=== PATIENT | male | born 1995 | race Two or more races ===

== ENCOUNTER 2020-01-18 13:00 | Emergency (ER) | payer OTHER ==
[~2020-01-18] VITALS: Ht 180.3 cm; Wt 96.1 kg
[2020-01-18 13:06] VITALS: BP 150/80
--- NOTE | 2020-01-18 13:27 | NUR ---
PT CAME [facility] TODAY CO OF SOB AND FEVER. HE WAS "DROPPING MY DAD OFF AT . AND DURING THE SCREENING TO GET INTO THE UC I WAS SHOWING A FEVER OF 101."
[2020-01-18] MEDS ORDERED: IBUPROFEN 600 MG TABLET ONE (13:47)
[2020-01-18] MEDS ORDERED: ACETAMINOPHEN 500 MG TABLET ONE (13:47)
[2020-01-18] MEDS ORDERED: ONDANSETRON ODT 4 MG ONE (13:47)
[2020-01-18] MEDS ORDERED: ACETAMINOPHEN 500 MG TABLET PO PRN (14:00)
[2020-01-18] MEDS ORDERED: IBUPROFEN 600 MG TABLET PO PRN (14:00)
[2020-01-18] MEDS ORDERED: ONDANSETRON ODT 4 MG PO PRN (14:00)
[2020-01-18 15:39] LABS: RAPID INFLUENZA A Negative (Negative); RAPID INFLUENZA B Negative (Negative)
== END 2020-01-18 16:12 | disposition home or self-care (01) ==
LOC: ED 13:48
DX: R50.9 Fever, unspecified (principal); Z20.828 Contact with and (suspected) exposure to other viral communicable diseases; R05 Cough
CPT/HCPCS: 71045; 87400; 99284; Q0162

== ENCOUNTER 2020-03-16 13:18 | Emergency (ER) | payer OTHER ==
[~2020-03-16] VITALS: Ht 180.3 cm; Wt 90.8 kg
--- NOTE | 2020-03-16 13:42 | NUR ---
PT WITH C/O FLANK PAIN X3 DAYS. PT WITH DIARRHEA X 7 DAYS. PT REPORTS 2 DAYS VOMITTING. PT STATES HE HAS HAD DARKER URINE, WAS SEEN AT [facility]RGENT [facility]ARE A COUPLE DAYS AGO AND DIAGNOSED WITH CALCIUM IN HIS URINE AND SCIATIC PAIN.
[2020-03-16] MEDS ORDERED: KETOROLAC 30 MG/1 ML IM ONE (14:30)
[2020-03-16] MEDS ORDERED: ONDANSETRON ODT 4 MG ONE (14:37)
[2020-03-16] MEDS ORDERED: CYCLOBENZAPRINE 10 MG TABLET ONE (14:37)
[2020-03-16] MEDS ORDERED: KETOROLAC 30 MG/1 ML ONE (14:37)
[2020-03-16 14:45] LABS: MICROSCOPIC INDICATED
--- NOTE | 2020-03-16 14:46 | NUR ---
PIV INITIATED, LABS DRAWN. PT MEDICATED PER DEC. UA SAMPLE COLLECTED AND SENT TO LAB
[2020-03-16 14:51] LABS: BASOPHILS # (AUTO) 0.03 x10^3/uL (0-0.1); BASOPHILS % (AUTO) 0 % (0-1); EOSINOPHILS # (AUTO) 0.03 x10^3/uL (0-0.4); EOSINOPHILS % (AUTO) 0 % (1-7); LYMPHOCYTES # (AUTO) 1.38 x10^3/uL (1-3.4); LYMPHOCYTES % (AUTO) 12 % (22-44); MD NO; MEAN CORPUSCULAR HEMOGLOBIN 29.3 pg (27.5-34.5); MEAN CORPUSCULAR HGB CONC 32.8 g/dL (33.2-36.2); MEAN CORPUSCULAR VOLUME 89.6 fL (81-97); MEAN PLATELET VOLUME 7.9 fL (7.4-10.4); MONOCYTES # (AUTO) 0.52 x10^3/uL (0.2-0.8); MONOCYTES % (AUTO) 5 % (2-9); NEUTROPHILS # (AUTO) 9.32 x10^3/uL (1.8-6.8); NEUTROPHILS % (AUTO) 83 % (42-75); PLATELET COUNT 294 x10^3/uL (130-400); RED BLOOD COUNT 5.49 x10^6/uL (4.38-5.82); RED CELL DISTRIBUTION WIDTH 13.8 % (9.4-14.8)
[2020-03-16] MEDS ORDERED: SODIUM CHLORIDE 0.9% 1,000ML IV ONE (15:00)
[2020-03-16] MEDS ORDERED: CYCLOBENZAPRINE 10 MG TABLET PO ONE (15:00)
[2020-03-16] MEDS ORDERED: KETOROLAC 30 MG/1 ML IVPush ONE (15:00)
[2020-03-16] MEDS ORDERED: ONDANSETRON ODT 4 MG PO ONE (15:00)
[2020-03-16 15:14] LABS: ALBUMIN 4.4 g/dL (3.4-5.0); ANION GAP 4 mmol/L (5-15); CALCIUM 9.4 mg/dL (8.5-10.1); CHLORIDE 109 mmol/L (98-107)
[2020-03-16 15:19] LABS: ALANINE AMINOTRANSFERASE 20 U/L (12-78); ALKALINE PHOSPHATASE 85 U/L (45-117); CREATININE 1.14 mg/dL (0.7-1.3); TOTAL PROTEIN 8.1 g/dL (6.4-8.2)
[2020-03-16] MEDS ORDERED: SODIUM CHLORIDE FLUSH 10ML SYR IVF ONE (15:30)
[2020-03-16 15:39] VITALS: BP 106/63
--- NOTE | 2020-03-16 15:41 | NUR ---
PT CONTINUES TO REST ON POPEYE KHALIL, NAD NOTED. PT STATES MIMIMAL RELEIF FROM PAIN MEDICATIONS, WILL NOTIFY ERMD
[2020-03-16 15:44] LABS: HCT (SEDRATE) 49.2 % (39.2-51.8)
[2020-03-16] MEDS ORDERED: CEFTRIAXONE PMX 1GM/50ML 50 ML IV ONE (16:00)
[2020-03-16] MEDS ORDERED: CEFTRIAXONE 1,000 MG IVPB ONE (16:00)
== END 2020-03-16 16:24 | disposition home or self-care (01) ==
LOC: ED 15:18
DX: N30.00 Acute cystitis without hematuria (principal); G89.29 Other chronic pain; M54.5 Low back pain; R11.10 Vomiting, unspecified; R19.7 Diarrhea, unspecified
CPT/HCPCS: 36415; 72110; 80053; 81001; 83690; 85025; 85651; 87086; 96374; 99284; J1885; J7030; Q0162

== ENCOUNTER 2020-03-27 03:26 | Emergency (ER) | payer OTHER ==
[~2020-03-27] VITALS: Ht 180.3 cm; Wt 95.0 kg
[2020-03-27 05:16] VITALS: BP 131/76
== END 2020-03-27 05:30 | disposition home or self-care (01) ==
LOC: ED 05:24
DX: R06.00 Dyspnea, unspecified (principal); F41.1 Generalized anxiety disorder
CPT/HCPCS: 71045; 99283; Q0177